=== PATIENT | male | born 1990 | race African-American/Black ===

== ENCOUNTER 2017-10-31 11:00 | Day surgery (SDC) | payer OTHER ==
[2017-10-31] MEDS ORDERED: SOD CHLORIDE 0.9% 1,000 ML IV (12:00)
[2017-10-31] MEDS ORDERED: CEFAZOLIN 2 GM/50 ML (PMX) 50 ML (FOR WT < 120 KG) IVPB (12:00)
[2017-10-31] MEDS: LACTATED RINGER'S 1,000 ML IV (12:08)
[2017-10-31] MEDS ORDERED: ONDANSETRON 4 MG INJ IV (13:00)
[2017-10-31] MEDS ORDERED: FENTAnyl 50 MCG/ML VIAL IV ×3 (13:00)
[2017-10-31] MEDS ORDERED: HYDROmorphONE 1 MG/5 ML IV SYRINGE IV ×3 (13:00)
[2017-10-31] MEDS ORDERED: DIPHENHYDRAMINE 50 MG INJ IV (13:00)
[2017-10-31] MEDS ORDERED: METOCLOPRAMIDE 10 MG INJ IV (13:00)
[2017-10-31] MEDS ORDERED: HYDROCODONE/APAP (5/325) TAB PO ×2 (13:00)
[2017-10-31] MEDS ORDERED: ALBUTEROL 0.083% (NEB) 2.5 MG/3 ML AMP HHN (13:00)
[2017-10-31] MEDS ORDERED: FENTAnyl 50 MCG/ML VIAL (13:22)
[2017-10-31] MEDS ORDERED: SUCCINYLCHOLINE CHLORIDE 100 MG/5 ML SYG IV (14:00)
[2017-10-31] MEDS: LIDOCAINE 1% (MPF) 30 ML INJ (14:00)
[2017-10-31] MEDS: TRIAMCINOLONE ACET 40 MG/ML INJ (14:00)
[2017-10-31] MEDS ORDERED: PROPOFOL 20 ML (14:01)
[2017-10-31] MEDS ORDERED: ROCURONIUM 50 MG INJ (14:01)
[2017-10-31] MEDS ORDERED: SUGAMMADEX SODIUM 200 MG/2 ML VIAL IV (14:01)
[2017-10-31] MEDS ORDERED: LIDOCAINE 100 MG SYRINGE (14:01)
[2017-10-31] MEDS ORDERED: CEFAZOLIN 1 GM INJ (14:01)
[2017-10-31] MEDS: MEPERIDINE 25 MG INJ IV (14:29)
[2017-10-31] MEDS: ONDANSETRON 4 MG INJ IV (14:29)
== END 2017-10-31 16:00 | disposition home or self-care (01) ==
LOC: SDS 11:00
DX: M23.222 Derangement of posterior horn of medial meniscus due to old tear or injury, left knee (principal)
CPT/HCPCS: 20610